=== PATIENT | female | born 2000 | race Two or more races ===

== ENCOUNTER 2024-10-04 17:01 | Emergency (ER) | payer OTHER ==
[~2024-10-04] VITALS: Ht 165.1 cm; Wt 59.0 kg
[2024-10-04] MEDS ORDERED: ACCUTANE30 MG PO (17:37)
[2024-10-04] MEDS ORDERED: TOBRADEX ST EYE5 ML OP (18:28)
== END 2024-10-04 18:35 | disposition home or self-care (01) ==
LOC: ER 17:04
DX: H10.89 Other conjunctivitis (principal)